=== PATIENT | female | born 1960 | race Caucasian/White ===

== ENCOUNTER → 2021-03-16 | Outpatient (CLI) | payer OTHER ==
[~2021-03-16] MED LIST: CLEOCIN HCL300 MG PO; PERCOCET 5/325 T1 EA PO
== END ==
LOC: EXRD 13:00
DX: Z78.0 Asymptomatic menopausal state (principal); F41.9 Anxiety disorder, unspecified; R73.02 Impaired glucose tolerance (oral); E55.9 Vitamin D deficiency, unspecified; M54.2 Cervicalgia
CPT/HCPCS: 77080

== ENCOUNTER → 2021-06-16 | Outpatient (CLI) | payer OTHER | LOC: KOH-I 12:58 | DX: M79.672 Pain in left foot (principal) | CPT/HCPCS: 73630 ==

== ENCOUNTER → 2021-09-17 | Outpatient (CLI) | payer OTHER | LOC: KOH-I 13:10 | DX: M54.50 Low back pain, unspecified (principal) | CPT/HCPCS: 71046; 72040; 72070; 72100 ==

== ENCOUNTER 2021-12-29 10:47 | Emergency (ER) | payer OTHER ==
[2021-12-29 11:26] LABS: HEMOGLOBIN 15.8 gm/dl (12.3-15.3); RED BLOOD COUNT 5.17 M/UL (4.00-5.10); WHITE BLOOD COUNT 7.9 K/UL (4.5-11.0)
[2021-12-29 12:13] LABS: BUN/CREATININE RATIO 23 (0-10)
[2021-12-29] MEDS ORDERED: CYCLOBENZAPRINE5 MG PO (14:39)
[2021-12-29] MEDS ORDERED: MELOXICAM15 MG PO (14:39)
== END 2021-12-29 14:51 | disposition home or self-care (01) ==
LOC: ER1 10:47
PROVIDERS: Physician Assistant
DX: R07.2 Precordial pain (principal); E78.5 Hyperlipidemia, unspecified; I10 Essential (primary) hypertension
CPT/HCPCS: 71045; 80053; 82550; 82553; 83690; 84484; 85025; 85379; 93005; 96374; 99285; J1885

== ENCOUNTER → 2022-01-03 | Outpatient (CLI) | payer OTHER ==
[~2022-01-03] MED LIST changes: +CYCLOBENZAPRINE5 MG PO; +MELOXICAM15 MG PO
== END ==
LOC: SLEEP 14:20
DX: G47.33 Obstructive sleep apnea (adult) (pediatric) (principal)
CPT/HCPCS: 95810

== ENCOUNTER → 2022-02-09 | Outpatient (CLI) | payer OTHER | LOC: KOH-I 09:56 | DX: M54.2 Cervicalgia (principal); F41.9 Anxiety disorder, unspecified; G47.00 Insomnia, unspecified; E55.9 Vitamin D deficiency, unspecified; G47.30 Sleep apnea, unspecified; S29.9XXA Unspecified injury of thorax, initial encounter; R73.02 Impaired glucose tolerance (oral); Z78.0 Asymptomatic menopausal state; Z76.89 Persons encountering health services in other specified circumstances; M19.09 Primary osteoarthritis, other specified site | CPT/HCPCS: 73000 ==